=== PATIENT | female | born 1985 | race Caucasian/White ===

== ENCOUNTER 2017-04-29 17:36 | Emergency (ER) | payer MEDICAID ==
[2017-04-29 17:39] VITALS: BMI 30.3
[2017-04-29 17:43] VITALS: TEMP 98.1
--- NOTE | 2017-04-29 18:34 | ED PDOC ---
Arrival/HPI <Sherie Patel - Last Filed: 04/29/17 19:16> - General Historian: Patient <KietJames - Last Filed: 04/29/17 20:08> - General Chief Complaint: Female Genitourinary Time Seen by Provider: 04/29/17 17:47 - History of Present Illness Narrative History of Present Illness (Text): 04/29/17 18:26 This is a 32 yo F with PMH of D&C and extopic that reports being 9-10 weeks , here with lower abdominal pain. She reports the pain has been present for about a week and went to the ER in [facility] where they did lab work and US and told her everything was "fine." She states that the pain has gotten worse since then and wanted to get evaluated again. Admits to nausea since being . Denies vaginal bleeding, discharge, fevers, chills, vomiting, sob or chest pain. States she has an appointment with [facility] this week. (James Santa) Past Medical History - Provider Review Nursing Documentation Reviewed: Yes - Infectious Disease Hx of Infectious Diseases: None - Tetanus Immunization Tetanus Immunization: Unknown - Cardiac Hx Cardiac Disorders: Yes Hx Hypertension: Yes - Pulmonary Hx Respiratory Disorders: No - Neurological Hx Neurological Disorder: No - HEENT Hx HEENT Disorder: No - Renal Hx Renal Disorder: No - Endocrine/Metabolic Hx Endocrine Disorders: No - Hematological/Oncological Hx Blood Disorders: No - Integumentary Hx Dermatological Disorder: No - Musculoskeletal/Rheumatological Hx Musculoskeletal Disorders: No Other/Comment: R knee surgery - Gastrointestinal Hx Gastrointestinal Disorders: No - Genitourinary/Gynecological Hx Genitourinary Disorders: Yes Other/Comment: Ectopic - Psychiatric Hx Psychophysiologic Disorder: No Hx Substance Use: No - Surgical History Hx Section: Yes (x2) Hx Orthopedic Surgery: Yes (r knee sx) Other/Comment: Partial hysterectomy from ectopic preg. - Anesthesia Hx Anesthesia: Yes Hx Anesthesia Reactions: No Hx Malignant Hyperthermia: No <James Santa - Last Filed: 04/29/17 20:08> Family/Social History - Physician Review Nursing Documentation Reviewed: Yes Family/Social History: No Known Family HX Smoking Status: Heavy Smoker > 10 Cigarettes Daily Hx Alcohol Use: Yes Hx Substance Use: No <Jamse Santa - Last Filed: 04/29/17 20:08> Allergies/Home Meds <Sherie Patel - Last Filed: 04/29/17 19:16> <James Santa - Last Filed: 04/29/17 20:08> Allergies/Adverse Reactions: Allergies No Known Allergies Allergy (Verified 04/29/17 17:39) Home Medications: Home Meds Medication Instructions Recorded Confirmed No Known Home Med 04/29/17 04/29/17 Review of Systems - Physician Review All systems were reviewed & negative as marked: Yes - Review of Systems Constitutional: Normal. absent: Fatigue, Fevers Eyes: Normal ENT: Normal Respiratory: Normal. absent: SOB, Cough Cardiovascular: Normal. absent: Chest Pain, Palpitations Gastrointestinal: Abdominal Pain, Nausea. absent: Diarrhea, Vomiting, Appetite Changes Genitourinary Female: Normal. absent: Dysuria, Frequency, Vaginal Bleeding, Vaginal Discharge Musculoskeletal: Normal Skin: Normal Neurological: Normal. absent: Headache, Dizziness Endocrine: Normal Hemo/Lymphatic: Normal Psychiatric: Normal <James Santa - Last Filed: 04/29/17 20:08> Physical Exam Vital Signs Reviewed: Yes Temperature: Afebrile Blood Pressure: Normal Pulse: Regular Respiratory Rate: Normal Appearance: Positive for: Well-Appearing, Non-Toxic, Comfortable Pain Distress: Mild Mental Status: Positive for: Alert and Oriented X 3 - Systems Exam Head: Present: Atraumatic, Normocephalic Mouth: Present: Moist Mucous Membranes Respiratory/Chest: Present: Clear to Auscultation, Good Air Exchange. No: Respiratory Distress Cardiovascular: Present: Normal S1, S2 Abdomen: Present: Tenderness (more significant in RLQ), Normal Bowel Sounds. No : Distention Genitourinary/Pelvic Exam: Present: Normal External Genitalia, Adenexal Tenderness, Cervical os Closed. No: Vaginal Discharge, Vaginal Bleeding, Vaginal Lesions, Adenexal Mass, Cervical Motion Tendernes, Odor Upper Extremity: Present: NORMAL PULSES, Neurovascularly Intact Lower Extremity: Present: NORMAL PULSES, Neurovascularly Intact Neurological: Present: Speech Normal, Motor Func Grossly Intact Skin: Present: Warm, Dry Psychiatric: Present: Alert, Oriented x 3 <James Santa - Last Filed: 04/29/17 20:08> Vital Signs Temp Pulse Resp BP Pulse Ox 04/29/17 19:05 79 18 121/79 99 04/29/17 17:42 98.1 F 83 17 123/84 99 Medical Decision Making - Lab Interpretations I have reviewed the lab results: Yes <Sherie Patel - Last Filed: 04/29/17 19:16> <James Santa - Last Filed: 04/29/17 20:08> ED Course and Treatment: Patient seen and examined with resident. Came up with treatment and disposition plan with resident. The patient is a 32 year old female who comes for evaluation of lower abdominal pain. Additional HPI details as noted by the resident. On physical examination the patient as tenderness with palpation to the abdomen which is more significant in the right lower quadrant. Labs, Urinalysis and Transvaginal ultrasound ordered to rule out UTI vs. ectopic . (Sherie Patel) 04/29/17 18:36 32 yo F with hx of ectopic and currently 9-10 weeks by pt history here with lower abdominal pain. Plan: - Labs - Transvaginal US - Reassess and disposition 04/29/17 20:04 US as read by Vrad FINDINGS: Gestation: A single, live intrauterine gestation is present. Based on crown- rump length current estimated gestational age is 10 weeks 0 days plus or -5 days. heart rate 152 beats per minute. Placenta/amniotic fluid: Cannot be adequately evaluated due to the early gestational age. Uterus/cervix: Cervical nabothian cysts noted. No myometrial mass. Ovaries: Unremarkable. No mass. By report the patient is status post right salpingectomy for ectopic gestation. Free fluid: Trace free fluid in the cul-de-sac. IMPRESSION: 10 week 0 day live IUP Labs unremarkable. Results discussed with patient. Comfortable with discharge home and follow up with [facility] at her first appointment. Will discharge with instructions to take tylenol for pain, drink plenty of fluids and to f/u with [facility]. Pt understands (James Santa) - Lab Interpretations Lab Results: 04/29/17 18:15 04/29/17 18:15 Lab Results 04/29/17 18:15: Urine Color Yellow, Urine Appearance Clear, Urine pH 7.5, Ur Specific Union 1.020, Urine Protein Negative, Urine Glucose (UA) Negative, Urine Ketones Negative, Urine Blood Negative, Urine Nitrate Negative, Urine Bilirubin Negative, Urine Urobilinogen 1.0 H, Ur Leukocyte Esterase Negative 04/29/17 18:15: Beta HCG, Quant 32778.00 H 04/29/17 18:15: Sodium 135, Potassium 4.1, Chloride 102, Carbon Dioxide 26, Anion Gap 11, BUN 7, Creatinine 0.7, Est GFR ( Amer) > 60, Est GFR (Non- Af Amer) > 60, Random Glucose 56 L, Calcium 9.7, Total Bilirubin 0.6, AST 23, ALT 22, Alkaline Phosphatase 48, Total Protein 7.2, Albumin 4.0, Globulin 3.2, Albumin/Globulin Ratio 1.3 04/29/17 18:15: WBC 9.0 D, RBC 3.77, Hgb 12.7, Hct 36.6, MCV 97.1, MCH 33.7, MCHC 34.7, RDW 13.1, Plt Count 219, MPV 11.1 H, Gran % 73.9 H, Lymph % (Auto) 17.4 L, Perry % (Auto) 7.1 H, Eos % (Auto) 1.4 L, Baso % (Auto) 0.2, Gran # 6.64 H, Lymph # 1.6, Perry # 0.6, Eos # 0.1, Baso # 0.02 - RAD Interpretation Radiology Orders: 04/29/17 18:20 OB TRANSVAGINAL [US] Stat - Scribe Statement The provider has reviewed the documentation as recorded by the Scribe <Sherie Patel - Last Filed: 04/29/17 19:16> <James Santa - Last Filed: 04/29/17 20:08> - Scribe Statement Daren Rosario Provider Scribe Attestation: All medical record entries made by the Scribe were at my direction and personally dictated by me. I have reviewed the chart and agree that the record accurately reflects my personal performance of the history, physical exam, medical decision making, and the department course for this patient. I have also personally directed, reviewed, and agree with the discharge instructions and disposition. (Sherie Patel) Disposition/Present on Arrival <Sherie Patel - Last Filed: 04/29/17 19:16> - Present on Arrival Any Indicators Present on Arrival: No History of DVT/PE: No History of Uncontrolled Diabetes: No Urinary Catheter: No History of Decub. Ulcer: No History Surgical Site Infection Following: None - Disposition Have Diagnosis and Disposition been Completed?: Yes Disposition Time: 20:06 <James Santa - Last Filed: 04/29/17 20:08> - Disposition Diagnosis: related back pain in first trimester, antepartum Disposition: HOME/ ROUTINE Condition: GOOD Discharge Instructions (ExitCare): at 7 to 10 Weeks (ED) Additional Instructions: You were evaluated for related abdominal pain. Take Tylenol for any pain and drink plenty of fluids. Follow up with your [facility] specialist this next week. Return to your nearest ED with any new or worsening symptoms. Referrals: PCP,NO [Primary Care Provider] - Follow up with primary
[2017-04-29 18:38] LABS: ADD MANUAL DIFF? NO
[2017-04-29 18:55] LABS: BASO # 0.02 K/mm3 (0.0-2.0); BASO % 0.2 % (0.0-3.0); EOS # 0.1 (0.0-0.7); EOS % 1.4 % (1.5-5.0); GRAN # 6.64 (1.4-6.5); GRAN % 73.9 % (50.0-68.0); HEMATOCRIT 36.6 % (36.0-48.0); LYMPH # 1.6 (1.2-3.4); LYMPH % 17.4 % (22.0-35.0); MEAN CELL VOLUME 97.1 fL (80.0-105.0); MEAN CORPUSCULAR HEMOGLOBIN 33.7 pg (25.0-35.0); MEAN CORPUSCULAR HGB CONC 34.7 g/dl (31.0-37.0); MEAN PLATELET VOLUME 11.1 fl (7.0-11.0); MONO # 0.6 (0.1-0.6); MONO % 7.1 % (1.0-6.0); PH,URINE 7.5 (4.7-8.0); PLATELET COUNT 219 10^3/uL (120.0-450.0); RED CELL DISTRIBUTION WIDTH 13.1 % (11.5-14.5); URINE BILIRUBIN NEGATIVE (NEGATIVE); URINE BLOOD NEGATIVE (NEGATIVE); URINE GLUCOSE (UA) NEGATIVE (NEGATIVE); URINE KETONE NEGATIVE (NEGATIVE); URINE LEUKOCYTE ESTERASE NEGATIVE Leu/uL (NEGATIVE); URINE PROTEIN NEGATIVE mg/dL (<30 mg/dL)
[2017-04-29 18:59] LABS: ALB/GLOB RATIO 1.3 (1.1-1.8); ALKALINE PHOSPHATASE 48 U/L (38-133); ALT/SGPT 22 U/L (7-56); AST/SGOT 23 U/L (15-39); BILIRUBIN,TOTAL 0.6 mg/dL (0.2-1.3); BLOOD UREA NITROGEN 7 mg/dL (7-21); CALCIUM 9.7 mg/dL (8.4-10.5); CARBON DIOXIDE 26 mmol/L (21-33); CHLORIDE 102 mmol/L (98-107); GFR AFRICAN-AMERICAN > 60; GLUCOSE,RANDOM 56 mg/dL (70-110); POTASSIUM 4.1 mmol/L (3.6-5.0); SODIUM 135 mmol/L (132-148); TOTAL PROTEIN 7.2 g/dL (5.8-8.3); URINE APPEARANCE CLEAR (CLEAR); URINE COLOR YELLOW (YELLOW)
[2017-04-29 19:05] VITALS: RESP 18
[2017-04-29 20:11] VITALS: BP 118/75; PULSE 74; O2SAT 100
--- NOTE | 2017-04-30 07:19 | US ---
PROCEDURE: OB Pelvic Ultrasound HISTORY: hx of ectopic (history of prior right fallopian tube resection containing the ectopic,) preg, abdominal pain COMPARISON: 08/07/2015. History of outside study [facility] - cord to the patient she was then 8 weeks . Those images in that report are not now available. TECHNIQUE: Transvaginal FINDINGS: UTERUS: Single Live intrauterine gestation. CRL equivalent to 10 wks/ 0 days gestatioin Gestational sac diameter equivalent to 7 weeks 5 days gestation age (Ultrasound estimated): 10 week 0 day Date of delivery (per LMP) : 11/10/2017 Heart rate: 157 bpm. Beatriz-gestational hemorrhage: None. Uterus measures 11.7 5.3 x 7.5 cm. No mass CERVIX: Long and closed. Small nabothian cysts noted RIGHT OVARY: Measures 1.8 x 1.5 x 2.0 cm. No mass. Normal flow. History of prior right ectopic fallopian tube removed LEFT OVARY: Measures 3.7 x 2.0 x 2.2 cm. No mass. Normal flow. FREE FLUID: None. OTHER FINDINGS: None. IMPRESSION: Single live intrauterine gestation - Findings as above.
== END 2017-04-29 20:21 | disposition home or self-care (01) ==
LOC: ED 17:36
DX: O26.91 Pregnancy related conditions, unspecified, first trimester (principal); Z3A.10 10 weeks gestation of pregnancy; M54.9 Dorsalgia, unspecified